=== PATIENT | male | born 1985 | race Caucasian/White ===

== ENCOUNTER 2020-07-26 03:15 | Outpatient (CLI) | payer SELFPAY ==
[2020-07-27 12:52] LABS: COVID-19 RT-PCR UVMMC Result Negative (Negative)
== END 2020-07-26 03:16 | disposition home or self-care (01) ==
LOC: LBO 03:16
PROVIDERS: PCP Family Medicine; Visit Provider Family Medicine
DX: Z20.822 Contact with and (suspected) exposure to COVID-19 (principal)
CPT/HCPCS: U0003

== ENCOUNTER 2023-03-17 08:55 | Outpatient (CLI) | payer SELFPAY ==
[2023-03-17 12:32] LABS: Calculated LDL 129 mg/dL (<100); Cholesterol 209 mg/dL (<200); HDL Cholesterol 61 mg/dL (40-60); Triglyceride 99 mg/dL (<150)
[2023-03-18 10:19] LABS: Hepatitis C Ab w Rflx HCV PCR Negative (Negative)
[2023-03-18 10:39] LABS: HIV-1/2 Ag & Ab Screen Negative (Negative)
== END 2023-03-17 08:56 | disposition home or self-care (01) ==
PROVIDERS: PCP Family Medicine; Referring Provider Family Medicine; Visit Provider Family Medicine
DX: Z11.4 Encounter for screening for human immunodeficiency virus [HIV] (principal); Z13.6 Encounter for screening for cardiovascular disorders; Z00.00 Encounter for general adult medical examination without abnormal findings
CPT/HCPCS: 36415; 80061; 86803; 87389